=== PATIENT | female | born 2005 | race African-American/Black ===

== ENCOUNTER 2025-07-21 06:03 | Emergency (ER) | payer SELFPAY ==
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
--- NOTE | ~2025-07-21 | CT_ITS ---
EXAMINATION: CT ABDOMEN AND PELVIS WITH CONTRAST CLINICAL INFORMATION: Left lower quadrant pain, severe, rule out diverticulitis or ovarian pathology. COMPARISON: None available. TECHNIQUE: Multidetector volumetric images were obtained from the superior aspect of the liver through the pubic symphysis following administration 85 mL of Omnipaque 350 intravenous contrast. Sagittal and coronal reformatted images were obtained on the technologist's workstation. Oral contrast: No This CT examination was performed using dose optimization techniques as appropriate, variously including the following: *Automated exposure control *Adjustment of mA and/or kV according to patient size (this includes techniques or standardized protocols for targeted exams where dose is matched to indication/reason for exam; i.e. extremities or head) *Use of iterative reconstruction technique FINDINGS: LUNG BASES: Lung bases are clear bilaterally. Heart size is normal. There are no effusions. LIVER, GALLBLADDER, AND BILIARY TREE: The liver is normal in size, shape, and attenuation. No focal hepatic lesion or biliary ductal dilatation is present. The gallbladder is unremarkable with no evidence of radiopaque gallstones, gallbladder wall thickening, or obvious pericholecystic inflammatory changes. PANCREAS: Unremarkable. SPLEEN: Unremarkable. ADRENAL GLANDS: Unremarkable. KIDNEYS AND URETERS: The kidneys are normal in size, shape, and attenuation. No hydronephrosis, hydroureter, or calculi seen. No perinephric stranding. BLADDER: Unremarkable. GASTROINTESTINAL TRACT: The appendix is normal. The stomach is decompressed. The duodenum is normal. The small bowel is normal in caliber and course. No inflammatory changes or wall thickening. The colon is normal in caliber, course, and appearance. No wall thickening or inflammatory change. The rectum is normal. ABDOMINAL WALL: No significant hernia is appreciated. LYMPH NODES: No abnormal lymphadenopathy is present. VASCULAR: Unremarkable. PELVIC VISCERA: The uterus and adnexal structures appear normal. Trace free pelvic fluid is felt to be physiologic in nature. OSSEOUS STRUCTURES: Normal in appearance. CT/CT abdomen pelvis w IV con IMPRESSION: 1. No acute findings in the abdomen or pelvis. Electronically signed by: Estrada Lozoya MD 07/21/2025 09:50 AM EDT
[2025-07-21 06:14] VITALS: BP 129/90; BP 145/82; PULSE 66; PULSE 88; RESP 20; TEMP 36.6; O2SAT 100; O2SAT 98; BMI 27.9
--- NOTE | 2025-07-21 06:21 | ECG_ITS ---
Test Reason : DIZZINESS/ABDOMINAL PAIN Blood Pressure : */* mmHG Vent. Rate : 71 BPM Atrial Rate : 71 BPM P-R Int : 124 ms QRS Dur : 72 ms QT Int : 382 ms P-R-T Axes : 57 55 44 degrees QTcB Int : 415 ms Normal sinus rhythm with sinus arrhythmia Normal ECG No previous ECGs available Referred By: Generic ED Physician Electronically Signed By: Bo Poole
[2025-07-21 06:54] LABS: MANUAL DIFF FLAG NO
[2025-07-21 06:56] LABS: Hematocrit 39.0 % (37.0-47.0); Hemoglobin 13.2 g/dl (12.0-16.0); Imm Gran Abs Auto 0.03 X10*3/uL (0.00-0.03); Imm Gran Pct Auto 0.3 % (0.0-0.4); Lymphocytes Absolute Auto 2.8 X10*3/uL (1.2-4.9); Mean Corpuscular HGB Conc 33.8 g/dl (31.0-35.0); Mean Corpuscular Hemoglobin 29.6 pg (27.0-33.0); Mean Corpuscular Volume 87.4 fL (80.0-98.0); NRBC Abs Auto 0.000 X10*3/uL (0.0-0.012); NRBC Pct Auto 0.0 /100WBC (0.0-0.2); Platelet Count 217 X10*3/uL (160-400); Red Blood Count 4.46 X10*6/uL (4.20-5.50); White Blood Count 9.6 X10*3/uL (4.8-10.8)
--- NOTE | 2025-07-21 06:57 | ED_ITS ---
HPI - Abdominal Pain General Chief Complaint: Abdominal Pain Stated Complaint: ABDOMINAL PAIN Time Seen by Provider: 07/21/25 06:48 Source: patient Mode of arrival: EMS Limitations: no limitations History of Present Illness ED Provider: Dr. Jake Ramirez HPI narrative: 20-year-old female with no significant past medical history who presents emergency department for evaluation of sudden onset, severe, sharp, left lower quadrant pain, 9/10, which started at 05:00 hours. The pain was associated with nausea, vomiting and diarrhea. She states she had 5 episodes of emesis which was consistent with old food and small amounts of blood. She also states she has had 5 episodes of loose watery diarrheal stool with no blood in his stool. Paramedics report that the patient complained of feeling lightheaded and dizzy and had a syncopal episode in front of them, she did not fall or strike her head. Patient was given Zofran 4 mg IV with no relief of her nausea. She states this is a 1st episode of this type of pain. The patient is sexually active and states that her last menstrual period was 2 weeks prior. She has never been . She denies frequency, urgency, dysuria, vaginal discharge or vaginal bleeding. Related Data Previous Rx's ?Medication ?Instructions ?Recorded ondansetron 4 mg disintegrating 4 mg PO Q6-8H PRN naus ea and 07/21/25 tablet vomiting #14 tabs Allergies Allergy/AdvReac Type Severity Reaction Status Date / Time No Known Allergies Allergy Verified 07/21/25 06:18 Review of Systems Review of Systems Yes all other systems are reviewed and are negative PMFSH Social History Social History Smoked in Last 30 Days: No Use of substances other than those prescribed or required for medical reasons: No Advance Directives: Yes Advance Directives Information Provided: Yes Advance Directives on File: No Do you have a plan to hurt others: No Plan Patient : No Physical Exam ED Vital Signs: Vital Signs - 24 hr 07/21/25 06:14 07/21/25 07:32 07/21/25 10:06 Temperature 97.9 F 97.6 F 97.9 F Pulse Rate 66 84 73 Respiratory Rate 20 21 H 14 Blood Pressure 145/82 H 139/93 H 117/72 Pulse Oximetry 98 96 99 Oxygen Delivery Method Room Air Room Air Room Air BMI result Body Mass Index 27.9 Vital signs revealed an elevated blood pressure of 145/82 otherwise unremarkable Exam: General: Awake, alert , appears to be in moderate distress secondary to her pain Head: Normocephalic, atraumatic EENT: PERRL, sclera and conjunctiva are normal, mouth with no erythema or exudates Neck: Supple, no adenopathy Lung: breath sounds symmetric, no wheezing, no rales and no rhonchi Chest: symmetric movement, nontender Heart: regular rate and rhythm, normal S1, S2 no murmurs or rubs Abdomen: soft, moderate to severe left lower quadrant tenderness, voluntary guarding, normoactive bowel sounds Back: no vertebral tenderness, no CVAT Extremities: no deformities, moves all extremities symmetrically, no edema Neuro: Awake, alert, oriented, normal speech, moves all extremities symmetrically Psych: Pleasant, cooperative Medical Decision Making Medical Decision Making MDM Narrative: 20-year-old female with no significant past medical history who presents emergency department for evaluation of sudden onset, severe, sharp, left lower quadrant pain, 9/10, which started at 05:00 hours. The pain was associated with nausea, vomiting and diarrhea. She states she had 5 episodes of emesis which was consistent with old food and small amounts of blood. She also states she has had 5 episodes of loose watery diarrheal stool with no blood in his stool. Paramedics report that the patient complained of feeling lightheaded and dizzy and had a syncopal episode in front of them, she did not fall or strike her head. Patient was given Zofran 4 mg IV with no relief of her nausea. She states this is a 1st episode of this type of pain. The patient is sexually active and states that her last menstrual period was 2 weeks prior. She has never been . She denies frequency, urgency, dysuria, vaginal discharge or vaginal bleeding. Vital signs revealed an elevated blood pressure otherwise unremarkable. Patient had significant left lower quadrant tenderness with voluntary guarding. Differential diagnosis: ?Includes but is not limited to diverticulitis, perforation, hemorrhagic ovarian cyst, ruptured ovarian cyst, ectopic , urinary tract infection, viral syndrome, anemia, electrolyte abnormalities Course: 07:04 Laboratory evaluation including quantitative beta-hCG was ordered. Patient's pain, nausea and vomiting was treated with morphine 4 mg IV, Reglan 10 mg IV and Benadryl 50 mg IV. I also ordered normal saline IV x1 L. 10:57 The patient required a 2nd dose of morphine 4 mg IV for pain. CT abdomen and pelvis with IV contrast did not reveal any significant abnormalities to explain her left lower quadrant pain, this is reassuring. At this time I suspect the patient has an acute viral illness causing her nausea vomiting and pain and I did discuss this with her. Patient was advised to take Tylenol and ibuprofen for pain. She was given a prescription for Zofran 4 mg ODT every 6-8 hours as needed for nausea and vomiting. She was advised to stay on a RYAN diet for the next 24 hours. She was given printed and verbal instructions and discharged home Differential Diagnosis Differential Diagnoses: The differential diagnosis associated with the presentation includes (See above) Admission/Observation Consideration of admission/observation: Escalation of care including admission/observation considered (Yes) Lab Data MDM Lab Attestation statement: I reviewed the patient's lab results. 07/21/25 06:51 07/21/25 06:51 Labs: Lab Results 07/21/25 07/21/25 Range/Units 06:51 10:17 WBC 9.6 (4.8-10.8) X10*3/uL RBC 4.46 (4.20-5.50) X10*6/uL Hgb 13.2 (12.0-16.0) g/dl Hct 39.0 (37.0-47.0) % MCV 87.4 (80.0-98.0) fL MCH 29.6 (27.0-33.0) pg MCHC 33.8 (31.0-35.0) g/dl RDW 12.6 (11.0-16.0) % Plt Count 217 (160-400) X10*3/uL MPV 10.0 (9.4-12.3) fL Immature Gran % (Auto) 0.3 (0.0-0.4) % Neut % (Auto) 63.2 (45-73) % Lymph % (Auto) 29.5 (20-40) % [place] % (Auto) 5.3 (2-11) % Eos % (Auto) 1.4 (0-4) % Baso % (Auto) 0.3 (0-2) % Lymph # (Auto) 2.8 (1.2-4.9) X10*3/uL [place] # (Auto) 0.5 (0.1-1.2) X10*3/uL Eos # (Auto) 0.1 (0.0-0.4) X10*3/uL Baso # (Auto) 0.0 (0.0-0.2) X10*3/uL Abs Immat Gran (auto) 0.03 (0.00-0.03) X10*3/uL Absolute Neuts (auto) 6.0 (2.0-8.3) x10*3/uL Absolute Nucleated RBC 0.000 (0.0-0.012) X10*3/uL Nucleated RBC % (auto) 0.0 (0.0-0.2) /100WBC Sodium 141 (135-145) mmol/L Potassium 3.5 (3.3-5.1) mmol/L Chloride 111 H (96-108) mmol/L Carbon Dioxide 22 (22-29) mmol/L Anion Gap 12 (12-20) BUN 16 (9-16) mg/dL Creatinine 0.85 (0.5-1.4) mg/dL Estim Creat Clear Calc 91.6 Estimated GFR > 60 Random Glucose 106 (60-115) mg/dL Calcium 8.9 (8.4-10.2) mg/dL Magnesium 2.2 (1.6-2.6) mg/dL Total Bilirubin 0.3 (0.0-1.0) mg/dL Direct Bilirubin 0.1 (0.0-0.5) mg/dL AST 18 (5-31) U/L ALT 14 (0-31) U/L Alkaline Phosphatase 77 (39-117) U/L Troponin I High Sens < 2.7 (<3.5-17.0) ng/L Total Protein 7.1 (6.5-8.0) g/dL Albumin 4.3 (3.5-5.0) g/dL Lipase 19 (8-78) U/L Beta HCG, Quant < 2 mIU/mL Urine Color Yellow Urine Appearance Clear Urine pH 8.0 (5.0-9.0) Ur Specific [place] >= 1.030 H (1.005-1.025) Urine Protein Negative (Neg-Trace) mg/dL Urine Glucose (UA) Negative (Negative) mg/dL Urine Ketones Negative (Negative) mg/dL Urine Blood Negative (Negative) Urine Nitrite Negative (Negative) Ur Leukocyte Esterase Negative (Negative) Urine Test NEGATIVE (NEGATIVE) Radiology Impression Discussion of test interpretation with radiology: I have reviewed the radiologist's reading. Radiologist Impression: CT abdomen pelvis w IV con IMPRESSION: 1. No acute findings in the abdomen or pelvis. Electronically signed by: Estrada Lozoya MD 07/21/2025 09:50 AM EDT Prescription Management I considered prescription management with: Other (Antiemetic: Zofran) Medications Administered Discontinued Medications Generic Name Dose Route Start Last Admin Trade Name Freq PRN Reason Stop Dose Admin Diphenhydramine HCl 50 mg 07/21/25 06:57 07/21/25 07:12 Diphenhydramine Hcl 50 Mg/Ml Vial IVPUSH 07/21/25 06:58 50 mg ONCE STA Administration Sodium Chloride 1,000 mls @ 999 mls/hr 07/21/25 06:57 07/21/25 09:38 Ns IV 07/21/25 07:57 Infused .Q1H1M STA Infusion Iohexol 100 ml 07/21/25 09:38 07/21/25 09:39 Iohexol 350 Mg/Ml 100 Ml Infus..Btl IV 07/21/25 09:39 85 ml ONCE ONE Administration Metoclopramide HCl 10 mg 07/21/25 06:57 07/21/25 07:12 Metoclopramide Hcl 10 Mg/2 Ml Vial IVPUSH 07/21/25 06:58 10 mg ONCE STA Administration Morphine Sulfate 4 mg 07/21/25 06:57 07/21/25 07:11 Morphine Sulfate 4 Mg/Ml Cartridge IVPUSH 07/21/25 06:58 4 mg ONCE STA Administration Protocol Morphine Sulfate 4 mg 07/21/25 09:11 07/21/25 09:22 Morphine Sulfate 4 Mg/Ml Cartridge IVPUSH 07/21/25 09:12 4 mg ONCE STA Administration Protocol Discharge Plan Discharge Clinical Impression: Diarrhea, Viral syndrome Abdominal pain Qualifiers: Abdominal location: left lower quadrant Qualified Code(s): R10.32 - Left lower quadrant pain Nausea & vomiting Qualifiers: Vomiting type: unspecified Qualified Code(s): R11.2 - Nausea with vomiting, unspecified Patient Disposition: Home, Self-Care Instructions: Viral Syndrome (ED) Additional Instructions: Your blood work was unremarkable and your test was unremarkable. Your CT abdomen and pelvis with IV contrast did not reveal any clear cause for your pain which is reassuring. Your pain and other symptoms are consistent with a viral infection. Take ibuprofen 200 mg pills, 2 pills every 6 hours as needed for pain or fever. Take Tylenol (acetaminophen) 500 mg pills, 2 pills every 6 hours as needed for pain or fever. Take Zofran ODT 4 mg pills, 1 pill dissolved in your mouth every 8 hours as needed for nausea and vomiting. For the next 24 hours, stay on a RYAN diet (bananas, rice, applesauce, tea and toast). Follow-up with your doctor in 2 days. Please return to the emergency department if your symptoms get worse or if you develop any symptoms that are concerning to you. Prescriptions: New ondansetron 4 mg tablet,disintegrating 4 mg PO Q6-8H PRN (Reason: nausea and vomiting) Qty: 14 0RF Print Language: Citizen Of [place]
[2025-07-21 07:19] LABS: Troponin-I High Sensitivity < 2.7 ng/L (<3.5-17.0)
[2025-07-21 07:20] LABS: Alanine Aminotransferase 14 U/L (0-31); Albumin Level 4.3 g/dL (3.5-5.0); Alkaline Phosphatase 77 U/L (39-117); Anion Gap 12 (12-20); Aspartate Amino Transferase 18 U/L (5-31); Blood Urea Nitrogen 16 mg/dL (9-16); Calcium 8.9 mg/dL (8.4-10.2); Carbon Dioxide 22 mmol/L (22-29); Chloride 111 mmol/L (96-108); Creatinine Clr Calc Pharmacy 91.6; Estimated Glomerular Filt Rate > 60; Lipase 19 U/L (8-78); Magnesium 2.2 mg/dL (1.6-2.6); Potassium 3.5 mmol/L (3.3-5.1); Sodium 141 mmol/L (135-145); Total Protein 7.1 g/dL (6.5-8.0)
[2025-07-21 07:32] VITALS: BP 139/93; PULSE 84; RESP 21; TEMP 36.4; O2SAT 96
--- NOTE | 2025-07-21 09:24 | PC.NURSE ---
Pt experienced diarrhea and vomiting in ER and at home. Given morphine, reglan and benedryl for abdominal pain. Pt able to sleep, no more vomiting. Reports abdominal pain 7/10 at this time. Second dose of morphine given. Resting quietly.
[2025-07-21] MEDS: iohexoL 350 MG/ML 100 ML INFUS..BTL IV (09:39)
[2025-07-21 10:06] VITALS: BP 117/72; PULSE 73; RESP 14; TEMP 36.6; O2SAT 99
[2025-07-21 10:29] LABS: Appearance Urine Clear; Glucose Urine UA Negative (Negative); PH 8.0 (5.0-9.0); Specific Gravity - Urine >= 1.030 (1.005-1.025)
[2025-07-21 10:30] LABS: UPreg QC Valid YES
--- NOTE | 2025-07-21 10:52 | PC.NURSE ---
Pt resting quietly after morphine.
[2025-07-21 10:53] VITALS: BP 111/66; PULSE 72; RESP 10; TEMP 36.6; O2SAT 98
[2025-07-21 11:11] VITALS: BP 111/66; PULSE 72; RESP 10; TEMP 36.6; O2SAT 98
== END 2025-07-21 11:17 | disposition home or self-care (01) ==
PROVIDERS: Emergency Provider Emergency Medicine Emergency Medical Services
DX: R10.32 Left lower quadrant pain (principal); R11.2 Nausea with vomiting, unspecified; R19.7 Diarrhea, unspecified; R42 Dizziness and giddiness
CPT/HCPCS: 36415; 74177; 80053; 81003; 81025; 82248; 83690; 83735; 84484; 84702; 85025; 93005; 96361; 96374; 96375; 96376; 99285; J1200; J2270; J2765; Q9967

== ENCOUNTER → 2025-07-21 06:21 | Outpatient (BNV) | payer SELFPAY | PROVIDERS: Emergency Provider Emergency Medicine Emergency Medical Services; Visit Provider Internal Medicine Cardiovascular Disease | DX: R42 Dizziness and giddiness (principal); R10.32 Left lower quadrant pain | CPT/HCPCS: 93010 ==

== ENCOUNTER → 2025-07-21 06:58 | Outpatient (BNV) | payer SELFPAY | PROVIDERS: Emergency Provider Emergency Medicine Emergency Medical Services; Visit Provider Radiology Diagnostic Radiology | DX: R10.32 Left lower quadrant pain (principal) | CPT/HCPCS: 74177 ==

== ENCOUNTER 2025-07-25 04:11 | Emergency (ER) | payer SELFPAY ==
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
--- NOTE | ~2025-07-25 | CT_ITS ---
EXAMINATION: CT ABDOMEN PELVIS WITH IV CONTRAST HISTORY: left lower quadrant sharp pain COMPARISON: Comparison is made with the prior examination dated 07/21/2025. TECHNIQUE: CT scan of the abdomen and pelvis was performed following administration of 85 mL Omnipaque 350 using standard departmental protocol. Coronal and sagittal reformatted images were generated and reviewed. Oral contrast material was not administered at the request of the referring physician. This CT exam was performed with one or more of the following dose reduction techniques: automated exposure control, adjustment of the mA and/or kV according to patient size, use of iterative reconstruction technique. DLP: 392 mGy-cm FINDINGS: LOWER CHEST: The visualized lung bases are clear. There is no pleural effusion. CARDIOVASCULATURE: The heart is normal in size. There is no pericardial effusion. LIVER: The liver is normal in size and contour. No liver mass is identified. The hepatic and portal veins are patent. GALLBLADDER / BILE DUCTS: The gallbladder is unremarkable. There is no intra or extrahepatic biliary ductal dilatation. SPLEEN: The spleen is normal in size. No focal splenic lesion is identified. PANCREAS: The pancreas is unremarkable in appearance. ADRENAL GLANDS: Within normal limits. KIDNEYS/RETROPERITONEUM: No renal calculi are identified. There is no hydronephrosis. No renal masses are identified. LYMPH NODES: No abdominal or pelvic lymphadenopathy. VASCULATURE: The abdominal aorta is normal in caliber. MESENTERY/PERITONEUM: No free fluid. No masses. There is no free intraperitoneal gas. STOMACH: The stomach is collapsed, limiting evaluation. SMALL BOWEL: The small bowel is normal in caliber. COLON: The colon is unremarkable. APPENDIX: Normal. URINARY BLADDER/PELVIC ORGANS: The urinary bladder is unremarkable. The uterus and ovaries are unremarkable. BONES / SOFT TISSUES: No suspicious bony or soft tissue abnormalities. CT/CT abdomen pelvis w IV con IMPRESSION: Unremarkable contrast-enhanced CT of the abdomen and pelvis. Electronically signed by: Gigi Marino MD 07/25/2025 09:46 AM EDT
--- NOTE | 2025-07-25 04:12 | ECG_ITS ---
Test Reason : CP Blood Pressure : */* mmHG Vent. Rate : 74 BPM Atrial Rate : 74 BPM P-R Int : 140 ms QRS Dur : 72 ms QT Int : 376 ms P-R-T Axes : -17 42 25 degrees QTcB Int : 417 ms Normal sinus rhythm Normal ECG When compared with ECG of 21-Jul-2025 06:35, No significant change was found Referred By: Generic ED Physician Electronically Signed By: MARVEL AGUIRRE
[2025-07-25 04:18] VITALS: BP 132/92; PULSE 66; RESP 16; TEMP 36.4; O2SAT 100; BMI 26.2
--- NOTE | 2025-07-25 04:28 | PC.NURSE ---
ekg completed. labs ordered. pt to ed2 changed over to hospital attire and triage completed at bedside. pt appears uncomfortable. primary rn aware. call carmona within reach. warm blanket given.
[2025-07-25 04:41] LABS: MANUAL DIFF FLAG NO
[2025-07-25 04:43] LABS: Hematocrit 36.9 % (37.0-47.0); Hemoglobin 12.8 g/dl (12.0-16.0); Imm Gran Abs Auto 0.01 X10*3/uL (0.00-0.03); Imm Gran Pct Auto 0.1 % (0.0-0.4); Lymphocytes Absolute Auto 2.5 X10*3/uL (1.2-4.9); Mean Corpuscular HGB Conc 34.7 g/dl (31.0-35.0); Mean Corpuscular Hemoglobin 29.2 pg (27.0-33.0); Mean Corpuscular Volume 84.2 fL (80.0-98.0); NRBC Abs Auto 0.000 X10*3/uL (0.0-0.012); NRBC Pct Auto 0.0 /100WBC (0.0-0.2); Platelet Count 250 X10*3/uL (160-400); Red Blood Count 4.38 X10*6/uL (4.20-5.50); White Blood Count 7.3 X10*3/uL (4.8-10.8)
--- NOTE | 2025-07-25 04:50 | PC.NURSE ---
Iv started in right hand, medicated per mar.
[2025-07-25 05:03] LABS: Alanine Aminotransferase 20 U/L (0-31); Albumin Level 4.3 g/dL (3.5-5.0); Alkaline Phosphatase 70 U/L (39-117); Anion Gap 14 (12-20); Aspartate Amino Transferase 22 U/L (5-31); Blood Urea Nitrogen 10 mg/dL (9-16); Calcium 9.8 mg/dL (8.4-10.2); Carbon Dioxide 20 mmol/L (22-29); Chloride 111 mmol/L (96-108); Creatinine Clr Calc Pharmacy 93.8; Estimated Glomerular Filt Rate > 60; Lipase 24 U/L (8-78); Magnesium 2.1 mg/dL (1.6-2.6); Potassium 3.7 mmol/L (3.3-5.1); Sodium 141 mmol/L (135-145); Total Protein 7.0 g/dL (6.5-8.0)
[2025-07-25 05:09] LABS: COVID-19 Test Negative (Negative); IDNOW Serial# 55D5AD1C; IDNOW Serial# 58CA691E; Influenza B2 Negative (Negative)
--- NOTE | 2025-07-25 06:26 | ED_ITS ---
HPI - Nausea/Vomiting/Diarrhea General Chief complaint: Nausea/Vomiting/Diarrhea Stated complaint: CP + N/VD + ABD PAIN Time Seen by Provider: 07/25/25 06:21 Source: patient Mode of arrival: ambulatory Limitations: no limitations History of Present Illness ED Provider: DR. Cosby HPI Narrative: 20-year-old female with no significant past medical history who presents to the emergency department for evaluation of sharp left lower quadrant abdominal pain a week ago and the pain was associated with nausea vomiting and diarrhea patient was seen in the emergency department on 07/[address] of the abdomen pelvis which showed no acute findings and patient was discharged home after felt better patient returned today for worsening of the diarrhea and vomiting and left lower abdominal pain. Patient was given Haldol and Zofran in the ED before I have seen the patient. Never had intra-abdominal surgery in the past, no dysuria, no frequency urination. Related Data Previous Rx's ?Medication ?Instructions ?Recorded ondansetron 4 mg disintegrating 4 mg PO Q6-8H PRN naus ea and 07/21/25 tablet vomiting #14 tabs Allergies Allergy/AdvReac Type Severity Reaction Status Date / Time No Known Allergies Allergy Verified 07/25/25 04:21 Review of Systems 2 Review of Systems: All other systems are reviewed and are negative Constitutional: Reports as per HPI and Reports no additional constitutional complaints Eyes: Reports as per HPI and Reports no additional eye complaints Reports system reviewed and no additional complaints, except as documented Cardiovascular: Reports as per HPI and Reports no additional cardiovascular complaints Respiratory: Reports as per HPI and Reports no additional respiratory complaints Gastrointestinal: Reports as per HPI and Reports no additional gastrointestinal complaints Genitourinary: Reports no additional female genitourinary complaints Musculoskeletal: Reports no additional musculoskeletal complaints Skin/Breast: Reports system reviewed and no additional complaints, except as docu Psychiatric: Reports no additional psychiatric complaints Endocrine: Reports no additional endocrine complaints Hematologic/Lymphatic: Reports no additional hematologic/lymphatic complaints Allergic/Immunologic: Reports no additional allergic/immunologic complaints Reports system reviewed and no additional complaints, except as documented and Reports Abnormal speech present [facility] Social History Social History Alcohol intake: current Alcohol intake frequency: holidays/special occasions only Smoked in Last 30 Days: No Use of substances other than those prescribed or required for medical reasons: No Substance Use Type: Marijuana Substance Use Frequency: Occasionally Advance Directives: No Advance Directives Information Provided: Yes Do you have a plan to hurt others: No Plan Physical Exam 2 Vital Signs: Vital Signs: Last Vital Signs Temp 97.5 F 07/25/25 04:18 Pulse 60 07/25/25 08:02 Resp 18 07/25/25 08:02 BP 111/57 L 07/25/25 08:02 Pulse Ox 97 07/25/25 08:02 O2 Del Method Room Air 07/25/25 08:02 BMI result Body Mass Index 26.2 Vital signs have been reviewed and appear to be correct. Blood pressure elevated. Heart rate normal. Respiratory rate normal. Temperature normal. Oxygen saturation normal. Appearance: Alert. Oriented X3. No acute distress. Head: Normal external exam. Normocephalic. Atraumatic. No Scott signs noted. No raccoon eyes noted Eyes: PERRLA. EOMI. Conjunctiva and sclera normal. Eyelids normal. ENT: TM's Normal. Pharynx normal. Uvula midline. Moist mucous membranes. No trismus noted. No drooling noted. No muffled voice noted. Neck: Normal inspection. Neck supple. FROM. No adenopathy. Thyroid Normal. No meningeal signs. No neck mass noted. CVS: Normal heart rate and rhythm. Heart sound normal. No murmurs noted. Pulses normal throughout. Respiratory: No respiratory distress. Painless inspiration. Breath sounds normal. No wheezes/rales/rhonchi noted. Chest nontender. No accessory muscle usage noted or decreased air movement noted. Abdomen: Soft, localized left lower quadrant abdominal tenderness, no guarding. Bowel sounds normal in all 4 quadrants. No distention noted. No organomegaly noted. No visible injury noted. Back: No CVA tenderness. Full range of motion noted. Skin: Skin warm and dry. Normal skin color. Normal skin turgor. No rashes/lesions/lacerations noted. Extremities: No lower extremity edema. Extremities exhibit normal range of motion. Extremities nontender. Neuro: Oriented X 3. Cranial nerve exam: II-XII are grossly intact No motor deficit. No sensory deficit. Reflexes normal. Course Reevaluation(s) Reevaluation #1: this is a 20-year-old female came in for evaluation of left lower quadrant abdominal pain and intractable vomiting, seen 3 days in the emergency department had a negative workup and showed clinical improvement, patient returned for intractable nausea and vomiting with left lower quadrant abdominal pain patient required multiple doses for controlling her symptoms patient now is sleeping comfortably with no apparent distress, repeat CT with IV contrast still unremarkable for acute intra-abdominal pathology. Patient admit to smoking marijuana occasionally. Time: 09:59 Reevaluation #2: Patient is sleeping comfortably with no distress no abdominal pain with no vomiting Time: 12:23 Medications Administered Discontinued Medications Generic Name Dose Route Start Last Admin Trade Name Troyq PRN Reason Stop Dose Admin Droperidol 0.625 mg 07/25/25 06:50 07/25/25 07:02 Droperidol 5 Mg/2 Ml Vial IVPUSH 07/25/25 06:51 0.625 mg ONCE ONE Administration Haloperidol Lactate 5 mg 07/25/25 06:11 07/25/25 06:23 Haloperidol Lactate 5 Mg/Ml Vial IVPUSH 07/25/25 06:12 5 mg ONCE ONE Administration Hydromorphone HCl 1 mg 07/25/25 07:49 07/25/25 08:03 Hydromorphone Hcl 1 Mg/Ml Syringe IVPUSH 07/25/25 07:50 1 mg ONCE ONE Administration Protocol Sodium Chloride 1,000 mls @ 999 mls/hr 07/25/25 04:45 07/25/25 06:52 Ns IV 07/25/25 05:45 Infused .Q1H1M YISEL Infusion Acetaminophen 1,000 mg in 100 mls @ 400 mls/hr 07/25/25 07:49 07/25/25 08:30 Ofirmev IV 07/25/25 08:03 Infused ONCE ONE Infusion Iohexol 100 ml 07/25/25 09:21 07/25/25 09:21 Iohexol 350 Mg/Ml 100 Ml Infus..Btl IV 07/25/25 09:22 85 ml ONCE ONE Administration Ketorolac Tromethamine 15 mg 07/25/25 06:48 07/25/25 07:02 Ketorolac Tromethamine 15 Mg/Ml Vial IVPUSH 07/25/25 06:49 15 mg ONCE ONE Administration Ondansetron HCl 4 mg 07/25/25 04:38 07/25/25 04:47 Ondansetron Hcl 4 Mg/2 Ml Vial IVPUSH 07/25/25 04:39 4 mg ONCE ONE Administration Medical Decision Making Differential Diagnosis Differential Diagnoses: The differential diagnosis associated with the presentation includes ( Diverticulitis, colitis, pancreatitis, marijuana induced emesis, electrolyte derangement, severe anemia, .) Admission/Observation Consideration of admission/observation: Escalation of care including admission/observation considered Lab Data MDM Lab Attestation statement: I reviewed the patient's lab results. 07/25/25 04:36 07/25/25 04:36 Labs: Lab Results 07/25/25 07/25/25 Range/Units 04:36 06:36 WBC 7.3 (4.8-10.8) X10*3/uL RBC 4.38 (4.20-5.50) X10*6/uL Hgb 12.8 (12.0-16.0) g/dl Hct 36.9 L (37.0-47.0) % MCV 84.2 (80.0-98.0) fL MCH 29.2 (27.0-33.0) pg MCHC 34.7 (31.0-35.0) g/dl RDW 12.9 (11.0-16.0) % Plt Count 250 (160-400) X10*3/uL MPV 10.2 (9.4-12.3) fL Immature Gran % (Auto) 0.1 (0.0-0.4) % Neut % (Auto) 57.2 (45-73) % Lymph % (Auto) 33.5 (20-40) % [place] % (Auto) 6.7 (2-11) % Eos % (Auto) 1.8 (0-4) % Baso % (Auto) 0.7 (0-2) % Lymph # (Auto) 2.5 (1.2-4.9) X10*3/uL [place] # (Auto) 0.5 (0.1-1.2) X10*3/uL Eos # (Auto) 0.1 (0.0-0.4) X10*3/uL Baso # (Auto) 0.1 (0.0-0.2) X10*3/uL Abs Immat Gran (auto) 0.01 (0.00-0.03) X10*3/uL Absolute Neuts (auto) 4.2 (2.0-8.3) x10*3/uL Absolute Nucleated RBC 0.000 (0.0-0.012) X10*3/uL Nucleated RBC % (auto) 0.0 (0.0-0.2) /100WBC Sodium 141 (135-145) mmol/L Potassium 3.7 (3.3-5.1) mmol/L Chloride 111 H (96-108) mmol/L Carbon Dioxide 20 L (22-29) mmol/L Anion Gap 14 (12-20) BUN 10 (9-16) mg/dL Creatinine 0.84 (0.5-1.4) mg/dL Estim Creat Clear Calc 93.8 Estimated GFR > 60 Random Glucose 113 (60-115) mg/dL Calcium 9.8 D (8.4-10.2) mg/dL Magnesium 2.1 (1.6-2.6) mg/dL Total Bilirubin 0.4 (0.0-1.0) mg/dL AST 22 (5-31) U/L ALT 20 (0-31) U/L Alkaline Phosphatase 70 (39-117) U/L Total Protein 7.0 (6.5-8.0) g/dL Albumin 4.3 (3.5-5.0) g/dL Lipase 24 (8-78) U/L Beta HCG, Quant < 2 mIU/mL Urine Color Yellow Urine Appearance Clear Urine pH >= 9.0 (5.0-9.0) Ur Specific [place] 1.015 (1.005-1.025) Urine Protein Negative (Neg-Trace) mg/dL Urine Glucose (UA) Negative (Negative) mg/dL Urine Ketones Negative (Negative) mg/dL Urine Blood Negative (Negative) Urine Nitrite Negative (Negative) Ur Leukocyte Esterase Negative (Negative) Urine RBC 0-2 (0-2) /HPF Urine WBC 0-5 (0-5) /HPF Ur Squamous Epith Cells 0-2 (0-2) /HPF Urine Bacteria 1+ (None Seen) Hyaline Casts 0-2 (0-2) /LPF Urine Opiates Screen Not Detected (Not Detect) Ur Buprenorphine Scrn Not Detected (Not Detect) ng/mL Ur Oxycodone Screen Not Detected (Not Detect) ng/mL Urine Methadone Screen Not Detected (Not Detect) ng/mL Urine Fentanyl Screen Not Detected (Not Detect) Ur Barbiturates Screen Not Detected (Not Detect) Ur Phencyclidine Scrn Not Detected (Not Detect) Ur Amphetamines Screen Not Detected (Not Detect) U Benzodiazepines Scrn Not Detected (Not Detect) Urine Cocaine Screen Not Detected (Not Detect) U Marijuana (THC) Screen POSITIVE H (Not Detect) COVID-19 (HANNA) Negative (Negative) COVID-19 Clin Com See Note Influenza Type A (MEGAN) Negative (Negative) Influenza Type B (MEGAN) Negative (Negative) Influenza A & B Note See Note Independent Interpretation I performed an independent interpretation of an: CT Scan ( abdomen pelvis: Unremarkable contrast enhanced CT of the abdomen and pelvis:) Radiology Impression Discussion of test interpretation with radiology: I have reviewed the radiologist's reading. Discharge Plan Discharge Clinical Impression: Abdominal pain, Intractable vomiting Patient Disposition: Home, Self-Care Instructions: Abdominal Pain (ED) Prescriptions: No Action ondansetron 4 mg tablet,disintegrating 4 mg PO Q6-8H PRN (Reason: nausea and vomiting) Qty: 14 0RF Print Language: Faroese
--- NOTE | 2025-07-25 06:32 | PC.NURSE ---
oob assist to the bathroom.
[2025-07-25 06:43] LABS: Appearance Urine Clear; Glucose Urine UA Negative (Negative); PH >= 9.0 (5.0-9.0); Specific Gravity - Urine 1.015 (1.005-1.025)
[2025-07-25 06:52] LABS: Cannabinoid Screen Urine POSITIVE (Not Detect)
--- NOTE | 2025-07-25 07:05 | PC.NURSE ---
pt medicated per dec. notified on coming nurse CHASE Costa
[2025-07-25 08:02] VITALS: BP 111/57; PULSE 60; RESP 18; O2SAT 97
[2025-07-25] MEDS: iohexoL 350 MG/ML 100 ML INFUS..BTL IV (09:21)
[2025-07-25 12:55] VITALS: BP 118/73; PULSE 72; RESP 16; TEMP 36.8; O2SAT 98
== END 2025-07-25 13:05 | disposition home or self-care (01) ==
PROVIDERS: Emergency Provider Emergency Medicine
DX: R10.32 Left lower quadrant pain (principal); R11.2 Nausea with vomiting, unspecified; R19.7 Diarrhea, unspecified; R07.9 Chest pain, unspecified; Z03.818 Encounter for observation for suspected exposure to other biological agents ruled out
CPT/HCPCS: 36415; 74177; 80053; 80307; 81001; 83690; 83735; 84702; 85025; 87502; 87635; 93005; 96361; 96365; 96375; 99285; J0131; J1171; J1630; J1790; J1885; J2405; Q9967

== ENCOUNTER → 2025-07-25 04:12 | Outpatient (BNV) | payer SELFPAY | PROVIDERS: Emergency Provider Emergency Medicine; Visit Provider Internal Medicine | DX: R07.9 Chest pain, unspecified (principal) | CPT/HCPCS: 93010 ==

== ENCOUNTER → 2025-07-25 07:49 | Outpatient (BNV) | payer SELFPAY | PROVIDERS: Emergency Provider Emergency Medicine; Visit Provider Radiology Diagnostic Radiology | DX: R10.32 Left lower quadrant pain (principal) | CPT/HCPCS: 74177 ==

== ENCOUNTER 2025-09-13 19:32 | Emergency (ER) | payer SELFPAY ==
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
--- NOTE | 2025-09-13 | ECG_ITS ---
Test Reason : chest pain Blood Pressure : */* mmHG Vent. Rate : 110 BPM Atrial Rate : 110 BPM P-R Int : 144 ms QRS Dur : 72 ms QT Int : 360 ms P-R-T Axes : 65 43 33 degrees QTcB Int : 487 ms Sinus tachycardia Otherwise normal ECG When compared with ECG of 25-Jul-2025 04:15, Vent. rate has increased by 36 bpm T wave amplitude has decreased in Lateral leads Referred By: Generic ED Physician Electronically Signed By: MARVEL AGUIRRE
--- NOTE | ~2025-09-13 | XR_ITS ---
CLINICAL HISTORY: chest pain 1 view chest x-ray. Comparison: None provided. Findings: No consolidation, pneumothorax, or effusion. Heart size normal. Impression: 1. No acute cardiopulmonary process. No focal pulmonary consolidation. This document has been electronically signed by: Pradeep Degroot MD on 09/13/2025 22:21:18
[2025-09-13 19:39] VITALS: BP 126/80; PULSE 90; O2SAT 100
[2025-09-13 19:41] VITALS: BP 130/80; PULSE 114; RESP 30; TEMP 36.1; O2SAT 100; BMI 23.8
[2025-09-13 20:19] VITALS: PULSE 104; RESP 24
[2025-09-13 20:19] LABS: MANUAL DIFF FLAG NO
[2025-09-13 20:22] LABS: Hematocrit 43.8 % (37.0-47.0); Hemoglobin 14.8 g/dl (12.0-16.0); Imm Gran Abs Auto 0.03 X10*3/uL (0.00-0.03); Imm Gran Pct Auto 0.4 % (0.0-0.4); Lymphocytes Absolute Auto 2.4 X10*3/uL (1.2-4.9); Mean Corpuscular HGB Conc 33.8 g/dl (31.0-35.0); Mean Corpuscular Hemoglobin 29.4 pg (27.0-33.0); Mean Corpuscular Volume 86.9 fL (80.0-98.0); NRBC Abs Auto 0.000 X10*3/uL (0.0-0.012); NRBC Pct Auto 0.0 /100WBC (0.0-0.2); Platelet Count 263 X10*3/uL (160-400); Red Blood Count 5.04 X10*6/uL (4.20-5.50); White Blood Count 8.4 X10*3/uL (4.8-10.8)
[2025-09-13] MEDS: Lactated Ringers 1,000 ML 999 ML IV (20:29)
[2025-09-13 20:48] LABS: Alanine Aminotransferase 13 U/L (0-31); Albumin Level 5.0 g/dL (3.5-5.0); Alkaline Phosphatase 85 U/L (39-117); Anion Gap 21 (12-20); Aspartate Amino Transferase 29 U/L (5-31); Blood Urea Nitrogen 7 mg/dL (9-16); Calcium 10.0 mg/dL (8.4-10.2); Carbon Dioxide 14 mmol/L (22-29); Chloride 107 mmol/L (96-108); Creatinine Clr Calc Pharmacy 73.3; Estimated Glomerular Filt Rate > 60; Potassium 3.0 mmol/L (3.3-5.1); Sodium 139 mmol/L (135-145); Total Protein 8.2 g/dL (6.5-8.0)
[2025-09-13 20:55] LABS: Troponin-I High Sensitivity < 2.7 ng/L (<3.5-17.0)
[2025-09-13] MEDS: diazePAM 10 MG/2 ML CARTRIDGE 2.5 MG IVPUSH (21:16)
--- NOTE | 2025-09-13 22:03 | ED.CHESTPAIN ---
HPI - Chest Pain General Chief Complaint: Chest Pain Stated Complaint: sob/vomiting/abd px Time Seen by Provider: 09/13/25 20:40 History of Present Illness ED Provider: [place] HPI narrative: [age] female who comes in with left-sided chest pain palpitations nausea vomiting. She is a heavy marijuana smoker and has had intractable vomiting in the past. She said she had a reasonably abrupt onset of left-sided chest pain associated with rapid breathing palpitations no radiation of the pain no history of DVT. She is on Nexplanon no syncope . She did have some mild upper abdominal discomfort. Some of the chest discomfort came on after vomiting she thinks few hours ago. Related Data Previous Rx's ?Medication ?Instructions ?Recorded ondansetron 4 mg disintegrating 4 mg PO Q6-8H PRN nausea and 07/21/25 tablet vomiting #14 tabs Allergies Allergy/AdvReac Type Severity Reaction Status Date / Time No Known Allergies Allergy Verified 09/13/25 19:48 [facility] Social History Social History Alcohol intake: current Alcohol intake frequency: holidays/special occasions only Substance Use Type: Marijuana Physical Exam Exam: Exam: EXAM: Gen: Arrived awake but is significantly distressed anxious looking tachycardic she did not look pale or toxic she was hyperventilating. Intermittently retching Head: Atraumatic Eyes: Anicteric, Normal conjunctiva. ENT: Moist mucosa, no pallor. ? Neck: Supple. Skin: ?No observable rash or bruising on exposed or examined skin Respiratory: Breathing comfortably, No distress.Clear to auscultation bilaterally, symmetric chest expansion, No wheeze, rales, ronchi. Cardiovascular: Regular rate and rhythm. No murmurs or rub. Well perfused periphery, warm extremities. No edema. ? Abdominal: No focal tenderness. Soft, no objective distension. No palpable masses or obvious organomegaly. ?No guarding, no rebound tenderness or other peritoneal findings. : No flank tenderness. Neuro: Alert. Gross movement of all extremities intact. ? Psych: Calm. Cooperative. MSK: No grossly visible deformity. Vital signs: See flowsheet Vital Signs: Vital Signs: Last Vital Signs Temp 97.2 F 09/14/25 00:45 Pulse 86 09/14/25 00:45 Resp 16 09/14/25 00:45 BP 138/93 H 09/14/25 00:45 Pulse Ox 100 09/14/25 00:45 O2 Del Method Room Air 09/14/25 00:45 BMI result Body Mass Index 23.8 Medications Administered Discontinued Medications Generic Name Dose Route Start Last Admin Trade Name Troyq PRN Reason Stop Dose Admin Diazepam 2.5 mg 09/13/25 21:07 09/13/25 21:16 Diazepam 10 Mg/2 Ml Cartridge IVPUSH 09/13/25 21:08 2.5 mg STAT STA Administration Droperidol 0.625 mg 09/13/25 21:07 09/13/25 21:17 Droperidol 5 Mg/2 Ml Vial IVPUSH 09/13/25 21:08 0.625 mg ONCE ONE Administration Lactated Ringer's 1,000 mls @ 999 mls/hr 09/13/25 20:30 09/13/25 21:57 Lr IV 09/13/25 21:30 Infused .Q1H1M YISEL Infusion Ketorolac Tromethamine 15 mg 09/13/25 22:33 09/13/25 22:44 Ketorolac Tromethamine 15 Mg/Ml Vial IVPUSH 09/13/25 22:34 15 mg ONCE ONE Administration Ondansetron HCl 4 mg 09/13/25 20:22 09/13/25 20:28 Ondansetron Hcl 4 Mg/2 Ml Vial IVPUSH 09/13/25 20:23 4 mg ONCE ONE Administration Medical Decision Making Medical Decision Making MDM Narrative: Medical Decision Making: [age] female with left-sided chest pain tachycardic in sinus but fluctuating. Reports left-sided chest pain somewhat pleuritic. She does have a Nexplanon and PE was pursued. There is a negative D-dimer 8 which is excludes thromboembolism in this low moderate risk patient. Her tachycardia is quite intermittent fluctuating time she will be 120s and then I will leave the bedside and she is down to the 80s sinus rhythm regular. Her chest wall is non injured nontender chest x-ray is reassuring she has not had any hypoxia. She has intermittently been retching and vomiting which maybe secondary to cyclic vomiting or gastroparesis or cannabis hyperemesis syndrome. No actionable electrolyte derangements. Preliminary Favored Differential Diagnosis: PE, dysrhythmia, anxiety, history exam and ECG not suggestive of pericarditis but it was considered, gastritis, PUD, cannabis hyperemesis syndrome, cyclic vomiting syndrome among additional considered etiologies Testing Interpreted Independently: ?ECG sinus normal intervals no ischemic changes no RV strain Radiology or Lab testing Results Reviewed: ?See below for details Consults: ?See below for details Independent Historians/External Chart Reviews: ?See below for details Social Determinants of Health Impacting MDM/Planning: ?See below for details Lab Data MDM Lab Attestation statement: I reviewed the patient's lab results. 09/13/25 20:05 09/13/25 20:05 Labs: Lab Results 09/13/25 09/13/25 Range/Units 20:05 22:44 WBC 8.4 (4.8-10.8) X10*3/uL RBC 5.04 (4.20-5.50) X10*6/uL Hgb 14.8 (12.0-16.0) g/dl Hct 43.8 (37.0-47.0) % MCV 86.9 (80.0-98.0) fL MCH 29.4 (27.0-33.0) pg MCHC 33.8 (31.0-35.0) g/dl RDW 13.0 (11.0-16.0) % Plt Count 263 (160-400) X10*3/uL MPV 10.4 (9.4-12.3) fL Immature Gran % (Auto) 0.4 (0.0-0.4) % Neut % (Auto) 65.3 (45-73) % Lymph % (Auto) 28.5 (20-40) % [place] % (Auto) 4.3 (2-11) % Eos % (Auto) 1.0 (0-4) % Baso % (Auto) 0.5 (0-2) % Lymph # (Auto) 2.4 (1.2-4.9) X10*3/uL [place] # (Auto) 0.4 (0.1-1.2) X10*3/uL Eos # (Auto) 0.1 (0.0-0.4) X10*3/uL Baso # (Auto) 0.0 (0.0-0.2) X10*3/uL Abs Immat Gran (auto) 0.03 (0.00-0.03) X10*3/uL Absolute Neuts (auto) 5.5 (2.0-8.3) x10*3/uL Absolute Nucleated RBC 0.000 (0.0-0.012) X10*3/uL Nucleated RBC % (auto) 0.0 (0.0-0.2) /100WBC D-Dimer High Sensitivty 207 NG/ML Sodium 139 (135-145) mmol/L Potassium 3.0 L (3.3-5.1) mmol/L Chloride 107 (96-108) mmol/L Carbon Dioxide 14 L (22-29) mmol/L Anion Gap 21 H (12-20) BUN 7 L (9-16) mg/dL Creatinine 0.96 (0.5-1.4) mg/dL Estim Creat Clear Calc 73.3 Estimated GFR > 60 Random Glucose 111 (60-115) mg/dL Calcium 10.0 (8.4-10.2) mg/dL Total Bilirubin 0.6 (0.0-1.0) mg/dL AST 29 (5-31) U/L ALT 13 (0-31) U/L Alkaline Phosphatase 85 (39-117) U/L Troponin I High Sens < 2.7 (<3.5-17.0) ng/L Total Protein 8.2 H (6.5-8.0) g/dL Albumin 5.0 (3.5-5.0) g/dL Discharge Plan Discharge Clinical Impression: Atypical chest pain Patient Disposition: Home, Self-Care Instructions: Chest Pain (ED) Additional Instructions: You were evaluated for chest pain and we have excluded blood clot/PE and other serious emergencies. Your heart rate was initially fast but fluctuated and eventually improved. Regarding your vomiting this could be multifactorial we have recommended you stop smoking marijuana as there is an associated condition with regular marijuana smoking and repeated episodes of abdominal pain and intractable serious vomiting which you may be experiencing. Your lab work including blood counts electrolytes kidney function was reassuring Prescriptions: No Action ondansetron 4 mg tablet,disintegrating 4 mg PO Q6-8H PRN (Reason: nausea and vomiting) Qty: 14 0RF Interventions: ED Discharge Assessment Last Done: 09/14/25 00:45 Discharge Date/Time: 09/14/25 01:19 Print Language: Bhutanese
[2025-09-13 22:07] VITALS: BP 143/99; PULSE 96; RESP 18; O2SAT 100
[2025-09-13 23:02] LABS: D Dimer High Sensitivity 207 NG/ML
[2025-09-14 00:27] VITALS: BP 144/93; PULSE 97; RESP 20; O2SAT 99
[2025-09-14 00:32] VITALS: BP 144/93; PULSE 86; RESP 16; TEMP 36.2; O2SAT 100
[2025-09-14 00:45] VITALS: BP 138/93; PULSE 86; RESP 16; TEMP 36.2; O2SAT 100
== END 2025-09-14 01:19 | disposition home or self-care (01) ==
PROVIDERS: Emergency Provider Emergency Medicine
DX: R07.89 Other chest pain (principal); R11.2 Nausea with vomiting, unspecified; R00.2 Palpitations; R00.0 Tachycardia, unspecified; R10.9 Unspecified abdominal pain; F12.90 Cannabis use, unspecified, uncomplicated
CPT/HCPCS: 36415; 71045; 80053; 84484; 85025; 85379; 93005; 96361; 96374; 96375; 99284; 99285; J1790; J1885; J2405; J3360; J7120

== ENCOUNTER → 2025-09-13 20:07 | Outpatient (BNV) | payer SELFPAY | PROVIDERS: Emergency Provider Emergency Medicine; Visit Provider Internal Medicine | DX: R00.0 Tachycardia, unspecified (principal) | CPT/HCPCS: 93010 ==

== ENCOUNTER → 2025-09-13 21:11 | Outpatient (BNV) | payer SELFPAY | PROVIDERS: Emergency Provider Emergency Medicine; Visit Provider Radiology Diagnostic Radiology | DX: R07.9 Chest pain, unspecified (principal) | CPT/HCPCS: 71045 ==